=== PATIENT | female | born 1995 | race Caucasian/White ===

== ENCOUNTER 2019-02-14 22:59 | Emergency (ER) | payer SELFPAY ==
[~2019-02-14] VITALS: Ht 154.9 cm; Wt 53.5 kg
[2019-02-14 23:18] VITALS: BP 118/63
--- NOTE | 2019-02-14 23:31 | NUR ---
PT AMBULATED BACK TO [facility]. EKG WAS DONE IN TRIAGE
--- NOTE | 2019-02-14 23:55 | NUR ---
PT TAKEN TO BED 4
--- NOTE | 2019-02-15 00:03 | NUR ---
23 y/o F presented to ED with c/o chest pain x 5hours. 7/10 pain, cramping. pain radiates to L arm. per pt, " I just feel jittery. this has happened before but usually i can calm myself down.my heart was racing fast too." NSR. no new life stessors. ERMD notified. Will continue to monitor.
== END 2019-02-15 00:49 | disposition home or self-care (01) ==
LOC: MED 22:59
DX: R07.89 Other chest pain (principal); R20.0 Anesthesia of skin; R06.02 Shortness of breath
CPT/HCPCS: 93005; 99283